=== PATIENT | male | born 1990 | race Hispanic/Latino ===

== ENCOUNTER 2016-05-11 19:52 | Emergency (ER) | payer OTHER ==
[~2016-05-11] VITALS: Ht 167.6 cm; Wt 68.2 kg
[~2016-05-11 19:52] MED LIST: AMOX500T2 PO; DEP250A PO; IBUP-1827 PO; NAPR500T PO; PRAZ1CAP PO; QUET100T69 PO; RISP1TAB90 PO
[2016-05-11 20:07] VITALS: BP 135/81; PULSE 105; RESP 18; O2SAT 97
--- NOTE | 2016-05-11 21:38 | ED.REPORT ---
HPI-Psychiatric Illness Date of Service May 11, 2016 ED Provider: Sergio Terrell MD A 25 year old male with a history of polysubstance abuse, psychosis, and depression with self-mutilating behavior presents to the ED requesting detox. The pt last used methamphetamines two days ago and now desires assistance with detox. He states that he does not have a place to stay tonight. The pt admits to fever though he does not feel particularly febrile. He also denies auditory hallucinations, cough, or other physical pain. He reportedly takes Depakote and prazosin, but has not noncompliant with his medications. Nursing Notes Stated Complaint: DETOX Chief Complaint: Substance Abuse Nursing Notes Reviewed: Yes Allergies: Coded Allergies: No Known Allergies (Verified Allergy, Unknown, 11/04/15) Scheduled Amoxicillin (Amoxicillin) 500 Mg Tablet 500 MG PO TID Divalproex DR (Depakote DR) 250 Mg Tablet 250 MG PO BID Prazosin (Minipress) 1 Mg Capsule 1 MG PO HS Quetiapine Fumarate (Quetiapine Fumarate) 100 Mg Tablet 100 MG PO HS Risperidone (Risperdal) 1 Mg Tablet 2 MG PO BID Scheduled PRN Ibuprofen (Ibuprofen) 600 Mg Tablet 600 MG PO QID PRN PRN For Pain Naproxen (Naprosyn) 500 Mg Tablet 500 MG PO BID PRN PRN For Pain General Time Seen by MD: 21:38 Chief Complaint Other (Requesting detox) Hx Obtained From: Patient Arrived By: Walk-in Recent Healthcare: No recent doctor visit, No recent hospitalization Similar Sx Previous: Yes Risk-Psychiatric Illness Suicide Risk Stratification Suicide Risk Factors - Adult: : Prior psych admission: Substance abuse RF Statements: Risk factors reviewed Past Medical History Past Medical History History of psychosis secondary to polysubstance abuse secondary to alcohol abuse, marijuana abuse, and methamphetamine abuse. Depression with self-mutilating behavior prior small fracture fragment dorsal to the carpus redemonstrated likely involving the hamate Past Surgical History none reported Smoking History Current Every Day Smoker Social History Drug Use: IV drugs, Meth, THC Other Social History: Good social support, Local resident Ambulatory Status Independent Review of Systems Review of Systems Note: detox request Constitutional: Reports: Fever Respiratory: Denies: Non-productive cough Cardiovascular: Denies: Chest pain GI: Denies: Abdominal pain Skin: Denies Rash Psychiatric: Denies: Hallucinations, auditory Complete sys rev & neg: except as marked. Physical Exam Initial Vital Signs Vital Signs (First) Date Time Temp Pulse Resp B/P Pulse Ox O2 Delivery O2 Flow Rate FiO2 05/11/16 20:07 38.1 105 18 135/81 97 Room Air Initial VS: Reviewed General/Constitutional: Awake, Alert seems to be responding to internal stimuli Neurologic: Oriented X3, Speech NL, No motor deficits, No sensory deficits paranoid Head / Eyes: Atraumatic, Normocephalic, PERRL, EOMI ENT: Atraumatic, Airway patent, Mucous membranes moist Respiratory / Chest: Atraumatic, Breath sounds NL, Breath sounds = bilat, No respiratory distress Cardiovascular: Heart rate NL, Regular rhythm, Heart sounds NL Abdomen: Atraumatic, Soft, Non-tender Skin: Atraumatic, Color NL, No rash, Warm, Dry Neck: Atraumatic, Supple, Full range of motion Back: Atraumatic, Full range of motion Upper Extremity / MS: Atraumatic, Full range of motion Lower Extremity / Pelvis / MS: Atraumatic, Full range of motion Interpretation & Diagnostics Lab Results Interpretation Test 05/11/16 21:15 Hold Urine Received (Received) Re-Eval/Medical Decision Med Decision/Clinical Course 25-year-old multiple visits to the emergency department, with chronic noncompliance with his meds, chronic psychosis and substance abuse. He is two days out from using methamphetamine reportedly, though still positive by urine. He is moderately paranoid but not nearly as uncontrollable and psychotic as typical. No indication of suicidality or homicidality. No bed available crisis tonight. He is directed to contact them daily for possible bed. Discharged in stable condition. Source of Hx: Old records Re-Evaluation/Progress : Time of Eval: 21:38 Patient Status: Condition improved Re-Evaluation/Progress Note: Pt informed of the diagnosis and plan for discharge during the intial interview. The pt understands and agrees with the plan. All questions are addressed at this time. Counseled Regarding: Diagnosis, Lab results, Need for follow-up, When/why to return to ED Discharge & Departure Impression: Primary Impression: Substance abuse Additional Impressions: Psychosis Noncompliance with medication regimen Disposition: Home Discharge Condition All VS Reviewed: Yes Condition: Stable Patient Instructions: Methamphetamine Abuse (ED) Additional Instructions: Call crisis respite daily at [phone]. They may have a bed for you tomorrow or the next day. It will require that you call to secure a spot. Follow-up with your doctor and with your counselor. Take your medicines as directed. Return if any immediate issues. Referrals: [facility] Al Attestation Portions of this note were transcribed by Marielle Stroud. I, Dr. Terrell personally performed the history, physical exam and medical decision-making; I reviewed and confirmed the accuracy of the information in the transcribed note. Signed by: Al Palacios, 05/11/2016 and 2303. copies to: [facility] Sergio Terrell MD May 11, 2016 21:38 MARIELLE STROUD May 11, 2016 21:48
== END 2016-05-11 22:56 | disposition home or self-care (01) ==
LOC: SED 19:52
DX: F19.10 Other psychoactive substance abuse, uncomplicated (principal); F29 Unspecified psychosis not due to a substance or known physiological condition; R50.9 Fever, unspecified; F17.200 Nicotine dependence, unspecified, uncomplicated; Z91.14 Patient's other noncompliance with medication regimen

== ENCOUNTER 2016-06-26 22:41 | Emergency (ER) | payer OTHER ==
[~2016-06-26] VITALS: Ht 167.6 cm; Wt 68.2 kg
[2016-06-26 22:45] VITALS: BP 119/69; PULSE 88; RESP 16; O2SAT 95
--- NOTE | 2016-06-27 01:15 | ED.REPORT ---
HPI-Extremity Problem Lower Date of Service June 27, 2016 ED Provider: Dr. Frias 25 y/o male with hx of psychosis and depression with self-mutilating behavior presents to the ED complaining of pain in the right toe 1st digit, onset two days ago. The pt reports his toe has an ingrown hair and appears "really infected". Nursing Notes Stated Complaint: INGROWN TOENAIL Chief Complaint: Extremity Trauma Nursing Notes Reviewed: Yes Allergies: Coded Allergies: No Known Allergies (Verified Allergy, Unknown, 11/04/15) Scheduled Amoxicillin (Amoxicillin) 500 Mg Tablet 500 MG PO TID Divalproex DR (Depakote DR) 250 Mg Tablet 250 MG PO BID Prazosin (Minipress) 1 Mg Capsule 1 MG PO HS Quetiapine Fumarate (Quetiapine Fumarate) 100 Mg Tablet 100 MG PO HS Risperidone (Risperdal) 1 Mg Tablet 2 MG PO BID Scheduled PRN Ibuprofen (Ibuprofen) 600 Mg Tablet 600 MG PO QID PRN PRN For Pain Naproxen (Naprosyn) 500 Mg Tablet 500 MG PO BID PRN PRN For Pain General Time Seen by MD: 01:14 Chief Complaint Toe injury right 1 Hx Obtained From: Patient Arrived By: Walk-in Onset Occurred: 2 days ago Symptom Duration: Since onset Location: : Toe right 1 Quality: Painful Severity: Current: Mild Severity: Maximum: Mild Recent Healthcare: No recent doctor visit Similar Sx Previous: No Past Medical History Past Medical History History of psychosis secondary to polysubstance abuse secondary to alcohol abuse, marijuana abuse, and methamphetamine abuse. Depression with self-mutilating behavior prior small fracture fragment dorsal to the carpus redemonstrated likely involving the hamate Past Surgical History none reported Smoking History Current Every Day Smoker Social History Drug Use: IV drugs, Meth, THC Other Social History: Good social support, Local resident Ambulatory Status Independent Review of Systems Right foot 1st toe swelling and pain. Skin: Reports Swelling Complete sys rev & neg: except as marked. Physical Exam Initial Vital Signs Vital Signs (First) Date Time Temp Pulse Resp B/P Pulse Ox O2 Delivery O2 Flow Rate FiO2 06/26/16 22:45 37.1 88 16 119/69 95 Room Air Initial VS: Reviewed Head / Eyes: Atraumatic, Normocephalic, PERRL ENT: Mucous membranes moist, Conjunctiva normal, No scleral icterus Neck: Supple, Full range of motion Respiratory: Breath sounds normal, Clear to auscultation, No respiratory distress Cardiovascular: Regular rate & rhythm, Heart sounds normal, Intact distal pulses Abdomen / GI: Soft, Non-tender, No guarding, No rebound, No distention Upper Extremities: Vascular intact, Neuro intact, No swelling, No tenderness Skin: Warm, Dry, No cyanosis Neurologic: Alert, Oriented, Nonfocal Lower Extremity / Pelvis / MS: Atraumatic, Full range of motion Ankle / Foot: Full range of motion Right Foot: Positive: Erythema present, Swelling present..., Tenderness present... Nail elevated out of the nail fold medially and laterally. Swelling and drainage from medial and lateral sides of the thumbnail on the right foot. Procedures Ingrown Toenail Removal Ingrown Toenail Removal: Small amount of pus drained. Time: 01:40 Procedure Performed by: ED physician Indication: Pain, Swelling, Erythema, Tenderness Consent / Setup / Site Prep: Informed consent provided, Consent from patient , Time-out performed, Hand hygiene observed Skin Preparation Agent: Betadine Digit Involved: Great toe right Digital Block Procedure: Bupivacaine 0.5% Removal Procedure: Partial nail removal Post-Procedure / Complications: Antibiotic oint applied, Dressing placed, No complications, Condition improved, Tolerated procedure well, Patient stable Re-Eval/Medical Decision Re-Evaluation/Progress : Time of Eval: 01:55 Patient Status: Condition improved Re-Evaluation/Progress Note: Rechecked pt. Discussed lab, imaging results and diagnosis. Informed the pt of the plan to discharge. Pt understands and agrees with plan. F/U instructions and RTER warning given. All questions addressed. Counseled Regarding: Diagnosis, Need for follow-up, When/why to return to ED Discharge & Departure Impression: Primary Impression: Paronychia of great toe, right Disposition: Home Discharge Condition All VS Reviewed: Yes Condition: Stable Additional Instructions: keep toe clean and covered, soak in warm soapy water twice daily for 10 15 minutes. Take cephalexen and trimethoprim until gone. elevate toe above level of heart when able. return to ED for increasing redness or increased swelling of toe. follow up with podiatry, call for re-check in about 1 week. Referrals: Cyril Paige DPM Scribe Attestation Portions of this note were transcribed by Dr.Slack Jo, personally performed the history, physical exam and medical decision-making;I reviewed and confirmed the accuracy of the information in the transcribed note. Signed by Al Toussaint. 06/27/16 0301 copies to: Cyril Paige DPM, Donald L MD June 27, 2016 01:15 Carmen Valenzuela June 27, 2016 02:01
[2016-06-27] MEDS ORDERED: _Trimethoprim-Sulfa 160/800 mg Tablet PO SCH (01:50)
[2016-06-27] MEDS ORDERED: _HYDROcodone/APAP 5-325 mg Tablet PO PRN (01:50)
[2016-06-27 02:20] VITALS: BP 131/82; PULSE 109; RESP 18; O2SAT 94
[2016-06-27] MEDS ORDERED: _Cephalexin 500 mg Capsule PO SCH (08:30)
== END 2016-06-27 02:21 | disposition home or self-care (01) ==
LOC: SED 22:41
DX: L03.031 Cellulitis of right toe (principal); F32.9 Major depressive disorder, single episode, unspecified; F17.200 Nicotine dependence, unspecified, uncomplicated

== ENCOUNTER 2016-08-13 19:36 | Emergency (ER) | payer OTHER ==
[~2016-08-13] VITALS: Ht 167.6 cm; Wt 68.2 kg
[2016-08-13 19:43] VITALS: BP 116/74; PULSE 66; RESP 15; O2SAT 99
--- NOTE | 2016-08-13 21:24 | ED.REPORT ---
HPI-Extremity Problem Lower Date of Service Aug 13, 2016 ED Provider: Dr. Tonny Singh M.D. The patient is a 25 year old male with a medical history including depression, psychosis, and polysubstance abuse who presents to the ED with an ingrown right first toenail onset one week ago. Associated symptoms include pain, swelling, and redness of the area. The patient denies other symptoms. He has has had similar symptoms in the past and had his nail partially removed, but it has since grown back. The patient was recently in the ED on 06/27/16 with paronychia of the right first toe. Nursing Notes Stated Complaint: INGROWN TOENAIL RT BIG TOE Chief Complaint: Extremity Trauma Nursing Notes Reviewed: Yes Allergies: Coded Allergies: No Known Allergies (Verified Allergy, Unknown, 08/13/16) Scheduled Amoxicillin (Amoxicillin) 500 Mg Tablet 500 MG PO TID Divalproex DR (Depakote DR) 250 Mg Tablet 250 MG PO BID Prazosin (Minipress) 1 Mg Capsule 1 MG PO HS Quetiapine Fumarate (Quetiapine Fumarate) 100 Mg Tablet 100 MG PO HS Risperidone (Risperdal) 1 Mg Tablet 2 MG PO BID Scheduled PRN Ibuprofen (Ibuprofen) 600 Mg Tablet 600 MG PO QID PRN PRN For Pain Naproxen (Naprosyn) 500 Mg Tablet 500 MG PO BID PRN PRN For Pain General Time Seen by MD: 21:24 Chief Complaint Other (Ingrown Toenail ) Hx Obtained From: Patient Arrived By: Walk-in Onset Occurred: 1 week ago Symptom Duration: Since onset Location: : Toe right 1 Quality: Painful Severity: Current: Moderate Severity: Maximum: Moderate Pertinent Negative: Relieved by nothing Immunizations: Tetanus up to date Recent Healthcare: Recent doctor visit Similar Sx Previous: Yes Past Medical History Past Medical History History of psychosis secondary to polysubstance abuse secondary to alcohol abuse, marijuana abuse, and methamphetamine abuse. Depression with self-mutilating behavior prior small fracture fragment dorsal to the carpus redemonstrated likely involving the hamate Past Surgical History none reported Smoking History Current Every Day Smoker Social History Drug Use: IV drugs, Meth, THC Other Social History: Good social support, Local resident Ambulatory Status Independent Review of Systems Review of Systems Note: + Ingrown right first toenail, right first toe redness Constitutional: Denies: Fever Musculoskeletal: Reports: Extremity pain (Right first toe), Extremity swelling (Right first toe) Complete sys rev & neg: except as marked. Respiratory: Denies: Non-productive cough, Shortness of breath GI: Denies: Diarrhea, Vomiting Physical Exam Initial Vital Signs Vital Signs (First) Date Time Temp Pulse Resp B/P Pulse Ox O2 Delivery O2 Flow Rate FiO2 08/13/16 19:43 37 66 15 116/74 99 Room Air Initial VS: Reviewed, Vital signs normal Head / Eyes: Atraumatic, Normocephalic ENT: Conjunctiva normal, No scleral icterus Neck: Supple, Full range of motion Skin: Warm, Dry, No cyanosis Neurologic: Alert, Oriented, Nonfocal Psychiatric: Mood/affect normal, Behavior normal, Normal thought content Ankle / Foot: Neurologic intact, Vascular intact Right Great Toe: Positive: Erythema present (Does not extend proximal to IP joint ), Nail ingrown (Medial margin), Swelling present... (Medially, overlapping half of toenail) Purulent drainage from medial aspect of right great toe General/Constitutional: Awake, Alert Procedures Ingrown Toenail Removal Time: 21:48 Procedure Performed by: ED physician, ED resident (Dr. Laron Bishop) Indication: Pain, Swelling, Erythema Consent / Setup / Site Prep: Consent from patient, Time-out performed, Hand hygiene observed, Stand sterile technique Skin Preparation Agent: Betadine Digit Involved: Great toe right Digital Block Procedure: Two digital nerve block, Lidocaine 2% Removal Procedure: Partial nail removal (Marginal resection), Removed with scissors, Silver nitrate applied Post-Procedure / Complications: Dressing placed, No complications, Condition improved, Tolerated procedure well, Patient stable Re-Eval/Medical Decision Med Decision/Clinical Course Infected ingrown toenail. Marginal resection done without difficulty by myself and resident Dr. Laron Bishop. Discharged home on antibiotics to follow up as needed. Source of Hx: Old records Re-Evaluation/Progress : Time of Eval: 22:07 Patient Status: Condition improved Re-Evaluation/Progress Note: Discussed with patient physical exam findings, diagnosis, and plan for discharge. Follow-up and return to the ER instructions given. Patient agrees with plan for care and all questions were addressed. Counseled Regarding: Diagnosis, Need for follow-up, When/why to return to ED Discharge & Departure Impression: Primary Impression: Ingrown toenail Disposition: Home Discharge Condition All VS Reviewed: Yes Condition: Improved Patient Instructions: Ingrown Nail (ED), Partial Nail Avulsion for Ingrown Nail (DC) Additional Instructions: Thank you for entrusting us with your care. Wear the dressing for the next two days. Then remove the dressing do daily dressing change with bacitracin and BandAid You can shower once the big dressing is off, but avoid extensive soaking of the area (no bathtub, no hot tub, and no scuba diving). Please take antibiotics as prescribed, trimethoprim sulfamethoxazole DS 1 by mouth twice a day for 10 days, #20 dispensed.. Call your primary care provider tomorrow for a follow-up appointment for wound check in 2-3 days.. Return to the ER with any new or worsening symptoms, or call me at [phone] which in the hours of 9 PM and 6 AM if you have any concerns or questions for the next couple of nights. Referrals: [facility] (PCP) Scribe Attestation Portions of this note were transcribed by Samia Flynn. I, Dr. Singh, personally performed the history, physical exam, and medical decision-making; I reviewed and confirmed the accuracy of the information in the transcribed note. Signed by: Al Curtis, 08/13/2016, 23:10 Tonny Singh MD Aug 13, 2016 21:24 SAMIA FLYNN Aug 13, 2016 21:35
[2016-08-13] MEDS ORDERED: Silver Nitrate Stick TOPICAL ONE (21:40)
[2016-08-13 22:34] VITALS: BP 130/84; PULSE 76; O2SAT 97
[2016-08-14] MEDS ORDERED: _Trimethoprim-Sulfa 160/800 mg Tablet PO SCH (08:30)
== END 2016-08-13 22:35 | disposition home or self-care (01) ==
LOC: SED 19:36
DX: L60.0 Ingrowing nail (principal); F32.9 Major depressive disorder, single episode, unspecified; F12.10 Cannabis abuse, uncomplicated; F15.10 Other stimulant abuse, uncomplicated; F11.10 Opioid abuse, uncomplicated; F17.200 Nicotine dependence, unspecified, uncomplicated

== ENCOUNTER 2016-11-21 14:26 | Inpatient (IN) | payer MEDICAID, OTHER ==
[~2016-11-21] VITALS: Ht 167.6 cm; Wt 61.0 kg
[2016-11-21 14:30] VITALS: BP 118/74; PULSE 0; RESP 16; O2SAT 98
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
[2016-11-21 17:14] LABS: BASOPHILS % (AUTO) 0.3 % (0-3); EOSINOPHILS % (AUTO) 2.4 % (0-5); MONOCYTES % (AUTO) 8.7 % (4-12); Mean Corpuscular Hemoglobin 29.9 pg (27.0-35.0); Mean Corpuscular Volume 86.5 fL (81-100); NEUTROPHILS % (AUTO) 53.7 % (40-74); Platelet Count 220 bil/L (150-400)
[2016-11-21] MEDS ORDERED: Benzocaine-Menthol Lozenge 2/Pkg PO PRN (22:15)
[2016-11-21] MEDS ORDERED: Magnesium Hydroxide 10 mL Oral Concentration PO PRN (22:15)
[2016-11-21] MEDS ORDERED: Alum-Mag Hydrox-Simeth 30 mL Suspension PO PRN (22:15)
[2016-11-21 22:21] VITALS: BP 121/79; PULSE 62; RESP 16; O2SAT 99
[2016-11-21 22:50] VITALS: BP 121/79; PULSE 62; RESP 16; O2SAT 99
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
--- NOTE | 2016-11-22 05:31 | NUR ---
Nursing Note Proofer 9pm-7am Patient admitted to unit at 2235, went to room, changed clothes, ate and was noted to be asleep from 2345 and through the rest of the night. Pt monitored q 15 minutes for safety, location and accountability.
--- NOTE | 2016-11-22 15:21 | NUR ---
Nursing Days Pt has spent the majority of the shift in his room but out for meals. He did see his nurse case manager from [facility] today. Polite and cooperative upon interaction.
--- NOTE | 2016-11-22 18:07 | HP ---
[address] [address] HISTORY AND PHYSICAL PATIENT: BELL PADRON : 1990 MR#: [id number] ADMIT: 11/21/2016 JOB ID: [id number] INITIAL EVALUATION: IDENTIFICATION OF PATIENT: The patient is a 26-year-old male who was admitted under LORIE status due to significant concern of depression, decompensation of care itself. The patient is currently connected with the PACT team and reportedly family members have expressed significant concern of increasing difficulties with the patient's isolation, withdrawal, apathy, amotivation and concern of statements of wanting to . CHIEF COMPLAINT: "I would never do anything." This per patient report. HISTORY OF PRESENT ILLNESS: As stated above, the patient is a 26-year-old male who reportedly was admitted due to concern of safety of self and also status of grave disability. Per his own report, the patient's ex-girlfriend who is the mother of his three children, ages 8, 7, and 6, moved out of state within the past two months. He indicates that he has noted some increasing factors of depression including isolation, withdrawal. He indicates that he is sleeping up to 20 hours per day. He reportedly works part-time at his [employer] in [place]. He reports that he essentially lives at the home and does nothing. In meeting with myself and the caseworker intake, he was cooperative, polite. He identified that he has not been taking medications as previously prescribed for a previous diagnosis of possible bipolar disorder. The patient states that he essentially felt no different on the medications and essentially chose to discontinue. He indicates that he is not seeing any significant changes and that his family members are supportive of holistic health by using supplements. In meeting with the patient, he openly identified significant difficulties with some feelings of hopelessness, helplessness. 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 He lives in the home with the parents. He states that essentially they purchase everything that he needs. He does identify that he does miss his children and has not had a visit for over the past two months. 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 He reports that he was connected with services post discharge and currently is connected with the PAC team. He reportedly was discharged on medications including Seroquel 25 mg q.h.s., Risperdal 1 mg b.i.d., and Depakote 750 mg daily. In review of his previous history, the patient denies any prior history of treatment for depression, stating that he has never been on any antidepressant for a prolonged period of time. I have suggested the possibility of the initiation of Prozac. Side effects and benefits were discussed. PAST MEDICAL HISTORY: He denies any recent changes of medical history. ALLERGIES: Substantial for no allergies to medications. MEDICATIONS: Medications of current include none. PAST PSYCHIATRIC HISTORY: Substantial for the above information. SOCIAL HISTORY: Currently the patient lives at home with the parents. His girlfriend of previous left the state within the past two months. He has three children, ages 8, 7, and 6. He admitted to usage of methamphetamine periodically, last usage in June. He denies any recent usage of marijuana. Abuse history was not reviewed. FAMILY HISTORY: Deferred. DEVELOPMENTAL HISTORY: Reportedly the patient attended up through 10th grade and obtained his GED through [facility] [employer] when he was in [employer] at the age of 17. He reportedly completed the GED within one month. MENTAL STATUS EXAMINATION: General appearance: Patient is cooperative, polite. He maintains good eye contact throughout. He smiles appropriately throughout the course of contact. His speech is of normal tone, frequency, and volume. His mood is depressed. His affect is congruent. His thought process shows no evidence of racing thoughts, flight of ideas, loose or disconnected thinking. Thought content: He denied any evidence of current suicidal, homicidal ideation. No evidence of active hallucinations, delusions. He was alert, oriented to time and place. Attention and concentration intact. Insight and judgment are fair. IMPRESSION: [place] I: 1. Major depressive disorder, recurrent type, nonpsychotic. 2. Polysubstance use disorder, in remission. [place] II: Deferred. [place] III: None. [place] IV: Stressors are noted for recent loss of family unit and life transition. [place] V: Global Assessment of Functioning of current 30. PLAN: 1. Recommendations for initiation of fluoxetine 20 mg q.a.m. 2. Recommendations for aftercare including return to the PACT team for continuation of therapeutic support and treatment. 3. Recommendations for petition for LR 90 with release scheduled for tomorrow. MTDD
[2016-11-22 18:58] VITALS: BP 128/75; PULSE 84; RESP 16
--- NOTE | 2016-11-22 21:09 | NUR ---
Evening Nurse Note: Pt has been isolating to his room, coming out for dinner, then going back to his room. Pt is cooperative when speaking with staff. Pt monitored q15 min for safety, location and accountability.
--- NOTE | 2016-11-22 21:10 | NUR ---
Observations 0700 - 1900 Pt affect and mood flat, isolative, guarded and withdrawn. Pt was in his bed and sleeping/resting most of the shift. Pt came out of room briefly for meals. Pt attended meals in D.R. has a good appetite and ate approximately 90% of his meals. Pt was offered snack but he declined. Pt was pleasant, polite and cooperative when approached. Pt was observed every 15 minutes through the shift as ordered.
--- NOTE | 2016-11-23 05:35 | NUR ---
nursing, nights, 11-7 s/o- has appeared to sleep after 2244 during q 15 minute assessments. a- no apparent distress. p- monitor behavior/emotional state, quality, times and amount of sleep, use and effect of medication. david
[2016-11-23 14:03] VITALS: BP 125/71; PULSE 70; RESP 16
--- NOTE | 2016-11-23 16:16 | PROG NOTE ---
[address] [address] PROGRESS NOTE PATIENT: BELL PADRON : 1990 MR#: [id number] ADMIT: 11/21/2016 JOB ID: [id number] DATE: 11/23/2016 CHIEF COMPLAINT: "I didn't notice it." This per patient report in reference to medication introduction. HISTORY OF PRESENT ILLNESS: As stated above, the patient identified that he did not notice any significant side effects from the introduction of Prozac. He received his first dose this morning. He indicated that he continues to be willing to continue with outpatient followup as scheduled before for both the individual therapy, medication management. He states that he does realize now that there is a correlation between the absence of his ex-girlfriend and visiting his three daughters. He became mildly tearful in discussion with myself and the medical student. OBJECTIVE: On mental status examination, he was cooperative, polite. He maintained good eye contact. He became tearful as noted. His speech was of normal tone, frequency and volume. His mood remains depressed. His affect is congruent. His thought process showed no evidence of racing thoughts, flight of ideas, loose or disconnected thinking. Thought content: He denied any evidence of current suicidal, homicidal ideation. He denied any evidence of active hallucinations, delusions. He was alert, oriented to person, place, time, situation. Attention and concentration intact. Insight and judgment are fair. PHYSICAL EXAMINATION: Vital signs of current. Temperature is 36.4, pulse 84, respirations 16, BP 128/75. MEDICATION REVIEW: Includes: 1. Prozac 20 mg daily. 2. Trazodone 100 mg p.r.n. at h.s. ASSESSMENT: AXIS I 1. Major depressive disorder, recurrent type, nonpsychotic. 2. Polysubstance use disorder in remission. AXIS II Deferred. AXIS III None. AXIS IV Stressors are noted for recent loss of his family, life transition. AXIS V Global assessment of functioning of current 30. PLANS: 1. Continuation of Prozac 20 mg q. a.m. 2. Recommendations for petition for LR 90 with scheduled release.
--- NOTE | 2016-11-23 17:50 | NUR ---
[facility] Day Shift Pt maintained behavioral control throughout the shift. Pt affect appears mostly flat, artificially bright when engaged with staff and peers. Pt spends the majority of the shift resting in his room, only entering the dining room to attend meals. Pt is not social with staff and peers. Pt occasionally appears to attend to internal stimuli while resting in his room. Pt attended all meals and ate approx 100% of all meals.
--- NOTE | 2016-11-23 18:42 | NUR ---
Nursing Note [id number] S: "I am good". O: Patient isolating in room, out for meals. Reports it is normal for him to stay away from people. Cooperative, pleasant. Denies anxiety, depression, auditory/visual hallucinations, or thoughts of self-harm and suicidal/homicidal ideation. A: Pleasant, cooperative, isolative. P: Monitor for safety and response to treatment. Follow plan of care.
--- NOTE | 2016-11-23 20:05 | NUR ---
Bioinformatics Software Engineer/Counselor: S/O:Patient denies S/I and H/I. He also denies auditory and visual hallucinations. Depression and anxiety were "a lot." A: Patient is cooperative, polite, depressed, isolative, fair insight, fair judgment. P: Follow the care plan, coordinate with out-patient providers.
--- NOTE | 2016-11-24 05:09 | NUR ---
Nursing Note Plaster Maker 7pm to 7am Pt asleep at start of shift and remained asleep for the duration without issue. Monitored pt. with q 15 minutes face checks for safety location and accountability
--- NOTE | 2016-11-24 11:37 | NUR ---
day shift nursing note S/O-"I slept OK." Pt. denies depression, hallucinations, SI or anxiety. He has a bright affect but tends to stay in his room and not interact with staff or peers. When asked about his children, he diverted his gaze and would not say how he felt about them being away from him. He stated his dad could pick him up at 5 pm for discharge. He has a good appetite and does come out of his room for meals. A-Lack of insight. Depressed. P-Monitor for safety per protocol. Encourage engagement with peers. Assist with discharge process.
--- NOTE | 2016-11-24 11:44 | PCM.DIMED ---
Discharge Instructions Date of Service Nov 24, 2016 Dates of Hospitalization Nov 21, 2016 at 22:06 Diet Discharge Diet: No restrictions Activity Discharge Activity: No restrictions John Martin DO Nov 24, 2016 11:44
[2016-11-24] MEDS ORDERED: FLUO20CA25 PO (11:45)
--- NOTE | 2016-11-24 13:50 | DIS ---
[address] [address] DISCHARGE SUMMARY PATIENT: BELL PADRON : 1990 MR#: [id number] ADMIT: 11/21/2016 JOB ID: [id number] DIS: ADMITTING DIAGNOSES: Include: AXIS I. 1. Major depressive disorder, recurrent type, nonpsychotic. 2. Polysubstance use disorder, in remission. AXIS II. Deferred. AXIS III. None. AXIS IV. Stressors were noted for recent loss of family unit, life transition. AXIS V. Global Assessment of Functioning current 30. DISCHARGE DIAGNOSES: Include: AXIS I. 1. Major depressive disorder, recurrent type, nonpsychotic. 2. Polysubstance use disorder, in remission. AXIS II. Deferred. AXIS III. None. AXIS IV. Stressors were noted for recent loss of family unit, life transition. AXIS V. Global Assessment of Functioning current 40. REASON FOR ADMISSION: Patient was a 26-year-old male who was admitted under LORIE status with significant concern presented by the PACT team due to patient's increasing factors of depression and status of concern of care of self. During the course of hospitalization, patient agreed to initiate doses of Prozac at 20 mg q.a.m. and showed beneficial response with more interaction and more energy noted. Throughout hospital course, patient openly identified that he had recently gone through significant loss of his family, including his three daughters and his ex who recently moved to the [facility] [place]. The patient identified that this occurred within the past two months and he identified increasing factors of depression including feelings of isolation, withdrawal, difficulties with feelings of hopelessness, helplessness, worthlessness, significant loss of weight, approximately 30 pounds. During the course of hospitalization, patient was encouraged to begin process of participating in group therapy activities. He did show some connection with several of the peers. He was willing to continue with the PACT team providers and agreed to an LR 90 with a plan of discharge. CONDITION ON THE TIME OF DISCHARGE: Patient's mental status exam: He was cooperative, polite. He smiled throughout the course of conversation. He denied any evidence of acute distress. His mood was neutral. Affect was congruent. His thought process showed no evidence of racing thoughts, flight of ideas, loose or disconnected thinking. Thought content: He denied any evidence of suicidal or homicidal ideation. No evidence of active hallucinations, delusions. He was alert, oriented to time and place. Attention and concentration intact. Memory intact in the short term, senior living, recent. Insight and judgment were fair. DISCHARGE PLANS: Include: 1. Follow up with the PACT team with LR 90. 2. Continuation of Prozac 20 mg q.a.m., one month supply, no refills. Reason for usage: Antidepressant.
--- NOTE | 2016-11-24 15:16 | NUR ---
Supervisor Assembly Stock/Counselor S:"I'm getting picked up at 5." O: Patient denies any SI or HI, no auditory or visual hallucinations. Depression rated at a 0/10 and anxiety at 2/10. A: Patient is being discharged into the care of his father. He is already established with PACT, but due to the weekend, this music writer was unable to obtain dates of follow up appts. Patient will follow up with his provider week of November 26, 2016. Patient has been provided with safety plan and all necessary discharge paperwork. P: Follow discharge plan.
[2016-11-24] MEDS ORDERED: .Epic Conversion Completed XX PRN (16:10)
--- NOTE | 2016-11-24 16:42 | NUR ---
Observations 0700 to 1900 Pt ate a snack. Pt is pleasant and cooperative on approach. Pt does not interact with peers. Pt is observed pacing in room much of shift. Pt did sign discharge paperwork and waiting to discharge presently. Pt maintained behavioral control and showed no signs of abnormal behavior. Breakfast: 50%. Lunch: 25%. Staff completed 15 min close observations as ordered.
--- NOTE | 2016-11-24 19:15 | NUR ---
Nurses Discharge Note Patient was discharged to home with his belongings, prescription and instruction to patient and his father to call PACT block and case maker on Saturday for appointments. Addendum: 11/24/16 at 1931 by KOBI ORTEGA RN Amended: Links added.
== END 2016-11-24 19:15 | disposition home or self-care (01) | DRG 885 ==
LOC: SED 15:06 → MHC 22:06
PROVIDERS: ADMIT Psychiatry & Neurology Psychiatry; ATTEND Psychiatry & Neurology Psychiatry
DX: F33.2 Major depressive disorder, recurrent severe without psychotic features (principal); Z87.891 Personal history of nicotine dependence